=== PATIENT | female | born 1965 | race Caucasian/White ===

== ENCOUNTER 2021-07-23 07:37 | Day surgery (SDC) | payer OTHER ==
[~2021-07-23] VITALS: Ht 160 cm; Wt 97.1 kg
[~2021-07-23 07:37] MED LIST: BL IBUPROFEN200 MG PO
[2021-07-23 10:08] VITALS: BP 106/57
== END 2021-07-23 10:34 | disposition home or self-care (01) | DRG 951 ==
LOC: ENDO 07:37
PROVIDERS: ATTEND Surgery
PROC: 0DJD8ZZ Inspection of Lower Intestinal Tract, Via Natural or Artificial Opening Endoscopic (ICD-10-PCS; principal; 2021-07-23)
DX: Z12.11 Encounter for screening for malignant neoplasm of colon (principal); K64.8 Other hemorrhoids

== ENCOUNTER 2022-11-30 03:54 | Emergency (ER) | payer OTHER ==
[2022-11-30] VITALS (15 sets, daily range): BP systolic 115–142; BP diastolic 58–82
[~2022-11-30] VITALS: Ht 160 cm; Wt 86.0 kg
[2022-11-30 05:08] LABS: BASO% 0.3 % (0-3); EOS% 1.2 % (0-8); HEMATOCRIT 41.9 % (37.0-47.0); HEMOGLOBIN 13.2 g/dl (12.0-16.0); IMMATURE GRANULOCYTES 0.9 % (0.0-5.0); LYMPH% 24.2 % (15-41); MEAN CELL VOLUME 91.9 fL CALC (80.0-100.0); MEAN CORPUSCULAR HGB 28.9 pG CALC (26.0-32.0); MEAN CORPUSCULAR HGB CONC 31.5 g/dL CAL (32.0-36.0); MONO% 5.8 % (2-13); NEUT# 7.21 thou/uL (2.00-7.15); NEUT% 67.6 % (42-76); RED BLOOD COUNT 4.56 mill/uL (4.20-5.60)
[2022-11-30 05:19] LABS: ALBUMIN 4.5 g/dL (3.2-5.0); ALKALINE PHOSPHATASE 127 u/l (38-126); AMYLASE 58 u/l (30-110); ANION GAP 14 (6-22 (CALC)); BILIRUBIN, TOTAL 0.6 mg/dL (0.02-1.3); BUN 22 mg/dL (7-17); BUN/CREATININE RATIO 28 (12-20 (CALC)); CARBON DIOXIDE 23 mmol/l (22-30); CHLORIDE 106 mmol/l (95-108); CREATININE 0.8 mg/dL (0.5-1.0); GFR FOR AFR.AMER. > 60 ML/MIN (>=60 (CALC)); GFR OTHER RACES > 60 ML/MIN (>=60 (CALC)); LIPASE 62 u/l (23-300); SGOT/AST 97 u/l (14-36); SODIUM 139 mmol/l (137-146); TOTAL PROTEIN 7.7 g/dL (6.3-8.2)
[2022-11-30 05:38] LABS: URINE BILIRUBIN - DIPSTICK NEGATIVE (NEGATIVE); URINE COLOR YELLOW; URINE GLUCOSE - DIPSTICK NEGATIVE (NEGATIVE); URINE KETONE NEGATIVE (NEGATIVE); URINE PH 7.5 (4.5-8.0); URINE PROTEIN - DIPSTICK NEGATIVE (NEG-TRACE); URINE UROBILINOGEN - DIPSTICK 0.2 E.U./dL (0.2)
[2022-11-30 05:43] LABS: URINE LEUK ESTERASE SMALL (NEGATIVE); URINE NITRITE - DIPSTICK NEGATIVE (Negative)
[2022-11-30 05:44] LABS: URINE BLOOD DIPSTICK NEGATIVE (NEGATIVE)
[2022-11-30 05:48] LABS: URINE BACTERIA MODERATE hpf; URINE EPITHELIAL CELLS FEW EPI/hpf (0-FEW)
[2022-11-30] MEDS ORDERED: CIPROFLOXACN500 MG PO (08:54)
[2022-11-30] MEDS ORDERED: MOTRIN800 MG PO (08:54)
== END 2022-11-30 09:27 | disposition home or self-care (01) | DRG 690 ==
LOC: ED 03:54
PROVIDERS: Emergency Medicine
DX: N39.0 Urinary tract infection, site not specified (principal); K82.1 Hydrops of gallbladder; Z20.822 Contact with and (suspected) exposure to COVID-19
CPT/HCPCS: J1956; Q9967; S0164

== ENCOUNTER 2023-01-14 08:15 | Day surgery (SDC) | payer OTHER ==
[~2023-01-14] VITALS: Ht 165.1 cm; Wt 88.0 kg
[~2023-01-14 08:15] MED LIST changes: +CIPROFLOXACN500 MG PO; +MOTRIN800 MG PO
[2023-01-14] MEDS ORDERED: MOTRIN800 MG PO (08:28)
[2023-01-14] MEDS ORDERED: PERCOCET 5/325M1 TAB PO (11:25)
[2023-01-14 13:46] VITALS: BP 123/66
== END 2023-01-14 12:57 | disposition home or self-care (01) | DRG 419 ==
LOC: ORM 08:15
PROVIDERS: ATTEND Surgery
PROC: 0FT44ZZ Resection of Gallbladder, Percutaneous Endoscopic Approach (ICD-10-PCS; principal; 2023-01-14)
DX: K80.10 Calculus of gallbladder with chronic cholecystitis without obstruction (principal)
CPT/HCPCS: J0131; J1100; J1610; J2710; Q9966; S0077

== ENCOUNTER 2023-01-17 09:23 | Emergency (ER) | payer OTHER ==
[2023-01-17] VITALS (19 sets, daily range): BP systolic 115–148; BP diastolic 68–90
[~2023-01-17] VITALS: Ht 165.1 cm; Wt 91.0 kg
[~2023-01-17 09:23] MED LIST changes: +PERCOCET 5/325M1 TAB PO
[2023-01-17 10:49] LABS: BASO% 0.4 % (0-3); EOS% 1.5 % (0-8); HEMATOCRIT 44.3 % (37.0-47.0); HEMOGLOBIN 14.1 g/dl (12.0-16.0); IMMATURE GRANULOCYTES 0.5 % (0.0-5.0); LYMPH% 28.4 % (15-41); MEAN CELL VOLUME 92.3 fL CALC (80.0-100.0); MEAN CORPUSCULAR HGB 29.4 pG CALC (26.0-32.0); MEAN CORPUSCULAR HGB CONC 31.8 g/dL CAL (32.0-36.0); NEUT# 6.14 thou/uL (2.00-7.15); NEUT% 62.2 % (42-76); RED BLOOD COUNT 4.8 mill/uL (4.20-5.60); RED CELL DISTRI WIDTH 12.8 % (11.5-15.5)
[2023-01-17 10:54] LABS: ALBUMIN 4.7 g/dL (3.2-5.0); ALKALINE PHOSPHATASE 110 u/l (38-126); ANION GAP 16 (6-22 (CALC)); BILIRUBIN, TOTAL 0.7 mg/dL (0.02-1.3); BUN 19 mg/dL (7-17); BUN/CREATININE RATIO 21 (12-20 (CALC)); CARBON DIOXIDE 25 mmol/l (22-30); CHLORIDE 102 mmol/l (95-108); CREATININE 0.9 mg/dL (0.5-1.0); GFR FOR AFR.AMER. > 60 ML/MIN (>=60 (CALC)); GFR OTHER RACES > 60 ML/MIN (>=60 (CALC)); POTASSIUM 4.7 mmol/l (3.5-5.1); SGOT/AST 43 u/l (14-36); SODIUM 139 mmol/l (137-146); TOTAL PROTEIN 8.1 g/dL (6.3-8.2)
[2023-01-17 11:09] LABS: URINE BILIRUBIN - DIPSTICK NEGATIVE (NEGATIVE); URINE BLOOD DIPSTICK TRACE-INTACT (NEGATIVE); URINE COLOR YELLOW; URINE GLUCOSE - DIPSTICK NEGATIVE (NEGATIVE); URINE KETONE NEGATIVE (NEGATIVE); URINE PROTEIN - DIPSTICK NEGATIVE (NEG-TRACE); URINE SPECIFIC GRAVITY <=1.005; URINE UROBILINOGEN - DIPSTICK 0.2 E.U./dL (0.2)
[2023-01-17 11:11] LABS: URINE NITRITE - DIPSTICK NEGATIVE (Negative)
[2023-01-17 11:12] LABS: URINE LEUK ESTERASE LARGE (NEGATIVE); URINE RBC 0-2 RBC/hpf (0-5)
[2023-01-17 11:13] LABS: URINE BACTERIA FEW hpf
== END 2023-01-17 15:08 | disposition home or self-care (01) | DRG 556 ==
LOC: ED 09:23
PROVIDERS: Family Medicine
DX: M25.511 Pain in right shoulder (principal); K91.5 Postcholecystectomy syndrome; Y83.6 Removal of other organ (partial) (total) as the cause of abnormal reaction of the patient, or of later complication, without mention of misadventure at the time of the procedure
CPT/HCPCS: Q9967